=== PATIENT | female | born 1965 | race Caucasian/White ===

== ENCOUNTER 2016-12-03 14:22 | Emergency (ER) | payer SELFPAY ==
--- NOTE | 2016-12-03 15:41 | DIAGNOSTIC IMAGING REPORT ---
PROCEDURE: XR KNEE 4 VIEWS - RIGHT INDICATION: PAIN TECHNIQUE: Four views. COMPARISON: None. FINDINGS: Osteoarthritis with the medial compartment narrowing. there is also some sclerosis in the tibial plateau. IMPRESSION: 1. Osteoarthritis right knee
--- NOTE | 2016-12-03 15:47 | ED CLINICAL REPORT ---
Clinical Report - Physicians/Mid Levels [facility] [address] [place] [address] 12/03/2016 14:26 Patient: FABIAN ARNOLD Time Seen: 14:33; initial patient contact, initial documentation, patient care assumed. Arrived- By private vehicle. Historian- patient. HISTORY OF PRESENT ILLNESS Chief Complaint: LOWER EXTREMITY PAIN. This started about 2 weeks ago and is still present. Not relieved by anything- worsened by standing and walking. Severity is described as being mild. The quality is noted to be burning and "pain". It is described as radiating (R lower leg). Symptoms located in the area of the right knee. The patient has not had redness. No swelling, bladder dysfunction, bowel dysfunction, sensory loss or motor loss. She has had difficulty walking. It has been associated with pain in the right leg. Patient denies an injury. Similar symptoms previously: None. Recent medical care: Not recently seen/assessed. REVIEW OF SYSTEMS No chest pain, difficulty breathing or fever. All systems otherwise negative, except as recorded above. PAST HISTORY See nurses notes. ( Back Pain. Migraine Headache. Anxiety Reaction. --07:51 Abbie Prado R.N.. ADDITIONAL SURGERIES: Cholecystectomy. Hernia Repair. Septal defect heart surgery.). SOCIAL HISTORY Heavy tobacco smoker. No alcohol use or drug use. No recent travel. Is a local resident. FAMILY HISTORY Negative. ADDITIONAL NOTES The nursing notes have been reviewed with agreement regarding the chief complaint, HPI, ROS, PMH and patient medications and allergies. PHYSICAL EXAM Appearance: Alert. Oriented X3. No acute distress. Eyes: Pupils equal, round and reactive to light. Eyes normal inspection. Neck: Normal inspection. Neck supple. CVS: Normal heart rate and rhythm. Heart sounds normal. Respiratory: No respiratory distress. Breath sounds normal. Back: Normal inspection. No tenderness. ROM normal. Skin: Skin intact. Skin warm and dry. Normal skin color. Normal skin turgor. Extremities: Right knee: mild tenderness located in the patella. Limited ROM secondary to pain (diminished flexion and external and internal rotation). Neurovascular intact distally. No ligamentous laxity present. No joint effusion. No erythema, swelling, laceration, abrasion or ecchymosis. No puncture wound, foreign body or deformity. Lower extremities do not exhibit normal ROM. Lower extremity edema present. No calf tenderness. Extremities otherwise negative. Gait: Abnormal gait. Neuro: Oriented X 3. No motor deficit. No sensory deficit. LABS, X-RAYS, AND EKG X-Rays: Right knee negative. Rt Knee X-ray: (IMPRESSION: 1. Osteoarthritis right knee Electronically Final signed by:Vito Wallace MD 12/03/2016 3:41:55 PM). Lower Extremity Sonography: Negative study. verbal report from [facility]. Interpretation time: 15:44. PROGRESS AND PROCEDURES Patient counseled in person regarding the patient's stable condition, test results and diagnosis. 15:45. Differential Diagnosis: I considered fracture, stress fracture, bone spur, primary tumor of bone, metastatic cancer, degenerative joint disease, rheumatoid arthritis, septic etiology, gout, pseudogout, sprain, hyperextension, dislocation, meniscus tear, anterior cruciate ligament tear, ligament tear, soft tissue injury, myositis, fasciitis, tendonitis, bursitis, Joshi's cyst, popliteal aneurysm, embolism, deep venous thrombosis and superficial thrombophlebitis as a possible cause of lower extremity pain in this patient. This is a partial list of diagnoses considered. Above considerations are based on history, physical exam, reassessment, X-Ray data and other information. Differential diagnosis was discussed with patient. Disposition: Discharged home in good and improved condition (15:47). Condition: good and stable. CLINICAL IMPRESSION Acute right knee pain. INSTRUCTIONS Wear elastic wrap (Fernando wrap) as directed for one weeks until better. Warnings: GENERAL WARNINGS: Return or contact your physician immediately if your condition worsens or changes unexpectedly, if not improving as expected, or if other problems arise. Specifically return if problem worsens. Prescription Medications: Ultram 50 mg tablets: take 1-2 orally every 6 hours as needed for pain. Dispense twenty (20). No refills. Substitution is permissible. Understanding of the discharge instructions verbalized by patient. Follow-up with: [facility], , [address], , [place], [address]; Figueroa Martins M.D., Ortho, , [address], , [place], [address]; Constantin Horne M.D., Ortho, , [address], , [place], [address]; Lucien Reynaga MD, Orthopedic Surgeon, , [id number], , [place], [address]; Pierre Erickson MD, Orthopedic Surgeon, , [address] , [place], [address] Follow up in about one week as needed. Call for an appointment. Summary of care provided to patient. (Electronically signed by Rona Weaver A.R.N.P. 12/03/2016 20:37)
--- NOTE | 2016-12-03 15:47 | ED ORDER SUMMARY ---
..... Patient: FABIAN ARNOLD OrderSheet [facility] VisitID: [id number] [address] [place] [address] 51y, F Registration Date/Time: 12/03/2016 ORDER SHEET Weight: 102.0 kg (stated) Allergies: Aleve, PCN GENERAL ORDERS: Knee 4V Right Urgent (14:42 12/03/2016 HBivens A.R.N.P.) (Ack 14:48 PWeiler ER Tech1) (15:06 LNations ER Tech1) US Venous Right Urgent (14:45 12/03/2016 HBivens A.R.N.P.) (Ack 14:48 PWeiler ER Tech1) (15:53 DDean R.N.) Fernando Wrap (15:47 12/03/2016 HBivens A.R.N.P.) (15:58 DDean R.N.) MEDICATION ORDERS: Hydrocodone-APAP PO 5/325 mg (NOW, HIGH ALERT MEDICATION) (15:47 12/03/2016 HBivens A.R.N.P.) (Ack 15:53 DDean R.N.) (16:06 DDean R.N.) IV FLUIDS: ORDER SHEET NOTES: [Electronically signed by Samra Ricks R.N. (16:06 12/03/2016)] [Electronically signed by Rona Weaver A.R.N.P. (20:37 12/03/2016)] [Electronically locked/signed by Samra Ricks R.N. (16:06 12/03/2016)]
--- NOTE | 2016-12-03 15:47 | ED NURSING NOTES ---
Clinical Report - Nurses [facility] [place] [address] 12/03/2016 14:26 Patient: FABIAN ARNOLD TRIAGE Triage time 14:34. Acuity: LEVEL 3. Chief Complaint: INJURY TO RIGHT KNEE. --14:40 Chele Clark R.N. 14:32 12/03/16. BP: 142/103. HR: 80. RR: 20. O2 saturation: 100%. Pain level now 09/01. --14:40 Chele Clark R.N. Acuity: LEVEL 4. --14:42 Chele Clark R.N. Weight: 102 kg stated. Height/Length: 68 inches Per Patient. BMI: 34.2. --14:42 Chele Clark R.N. Medications None. --14:39 Chele Clark R.N. Allergies Aleve. PCN. --14:39 Chele Clark R.N. History Arrived by private vehicle. Historian: patient. ( 2 week history of knee pain without known injury). She has had trouble walking. ( Painful to bear weight). 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 --14:40 Chele Clark R.N. SOCIAL HX: Current every day heavy tobacco smoker- less than 1 pack per day. No alcohol use or drug use. FALL RISK ASSESSMENT: Fall risk assessment completed. No fall risk identified. NUTRITIONAL RISK ASSESSMENT: The nutritional risk assessment revealed no deficiencies. FUNCTIONAL ASSESSMENT: Functional assessment: no impairments noted. LEARNING NEEDS ASSESSMENT: The learning needs assessment revealed no barriers. SKIN INTEGRITY ASSESSMENT: Skin integrity risk assessment completed. No skin integrity risk identified. --14:42 Chele Clark R.N. PROBLEMS: Back Injury. Back Pain. Tetanus Status. Chest Pain. Chronic Headache. Sinus Problems. Acute Pain. LNMP - Last Normal Menstrual Period. Migraine Headache. Dental Pain. Anxiety Reaction. Headache. Immunizations. --14:50 Chele Clark R.N. ADDITIONAL SURGERIES: Cholecystectomy. Hernia Repair. Septal defect heart surgery. --14:51 Chele Clark R.N. Interventions ID band on patient. To room. --14:42 Chele Clark R.N. PHYSICAL ASSESSMENT GENERAL / NEURO / PSYCH: Oriented X 4. Alert. Appears in no acute distress. Appears in pain. EXTREMITIES: Capillary refill is less than 2 seconds in the extremities. Extremity pulses are within normal limits. Pain with weight bearing. Neuro-vascular status intact to the extremity. Right knee. --14:41 Chele Clark R.N. NURSING PROGRESS NOTES Call light placed in reach. Bed placed in lowest position. --14:42 Chele Clark R.N. 15:00. Care transferred and report received. --15:21 Samra Ricks R.N. 15:10 US at bedside doing exam. --15:21 Samra Ricks R.N. 15:50 12/03/2016 Hydrocodone-APAP (Hydrocodone-Acetaminophen) PO 5/325 mg Tablets 1 tab given. --16:06 Samra Ricks R.N. DISPOSITION / DISCHARGE 16:00. Condition at departure: unchanged and stable. Fall risk assessment completed. Risk factors identified include severe pain and patient impairment of mobility. No learning barriers present. Discharge instructions provided and reviewed with the patient. Reviewed medication(s) (ultram, motrin,). Treatments reviewed (ice, venancio, elevate, rest). Reviewed referral to an orthopedic surgeon. Patient verbalized understanding. Written instructions provided in Divehi. The patient was discharged home and accompanied by outgoing inspector. She left the Emergency Department in a wheelchair and via private vehicle. Angular Developer driving. --16:05 Samra Ricks R.N. 15:58 12/03/16. BP: 144/92. HR: 42. RR: 20. O2 saturation: 100%. Temp: deferred. Pain level now: 09/01. --16:05 Samra Ricks R.N. Locked/Released at 12/03/2016 16:06 by Samra Ricks R.N.
--- NOTE | 2016-12-03 15:47 | ED CLINICAL REPORT ---
Clinical Report - Physicians/Mid Levels [facility] [address] [place] [address] 12/03/2016 14:26 Patient: FABIAN ARNOLD Time Seen: 14:33; initial patient contact, initial documentation, patient care assumed. Arrived- By private vehicle. Historian- patient. HISTORY OF PRESENT ILLNESS Chief Complaint: LOWER EXTREMITY PAIN. This started about 2 weeks ago and is still present. Not relieved by anything- worsened by standing and walking. Severity is described as being mild. The quality is noted to be burning and "pain". It is described as radiating (R lower leg). Symptoms located in the area of the right knee. The patient has not had redness. No swelling, bladder dysfunction, bowel dysfunction, sensory loss or motor loss. She has had difficulty walking. It has been associated with pain in the right leg. Patient denies an injury. Similar symptoms previously: None. Recent medical care: Not recently seen/assessed. REVIEW OF SYSTEMS No chest pain, difficulty breathing or fever. All systems otherwise negative, except as recorded above. PAST HISTORY See nurses notes. ( Back Pain. Migraine Headache. Anxiety Reaction. --07:51 Abbie Prado R.N.. ADDITIONAL SURGERIES: Cholecystectomy. Hernia Repair. Septal defect heart surgery.). SOCIAL HISTORY Heavy tobacco smoker. No alcohol use or drug use. No recent travel. Is a local resident. FAMILY HISTORY Negative. ADDITIONAL NOTES The nursing notes have been reviewed with agreement regarding the chief complaint, HPI, ROS, PMH and patient medications and allergies. PHYSICAL EXAM Appearance: Alert. Oriented X3. No acute distress. Eyes: Pupils equal, round and reactive to light. Eyes normal inspection. Neck: Normal inspection. Neck supple. CVS: Normal heart rate and rhythm. Heart sounds normal. Respiratory: No respiratory distress. Breath sounds normal. Back: Normal inspection. No tenderness. ROM normal. Skin: Skin intact. Skin warm and dry. Normal skin color. Normal skin turgor. Extremities: Right knee: mild tenderness located in the patella. Limited ROM secondary to pain (diminished flexion and external and internal rotation). Neurovascular intact distally. No ligamentous laxity present. No joint effusion. No erythema, swelling, laceration, abrasion or ecchymosis. No puncture wound, foreign body or deformity. Lower extremities do not exhibit normal ROM. Lower extremity edema present. No calf tenderness. Extremities otherwise negative. Gait: Abnormal gait. Neuro: Oriented X 3. No motor deficit. No sensory deficit. LABS, X-RAYS, AND EKG X-Rays: Right knee negative. Rt Knee X-ray: (IMPRESSION: 1. Osteoarthritis right knee Electronically Final signed by:Vito Wallcae MD 12/03/2016 3:41:55 PM). Lower Extremity Sonography: Negative study. verbal report from [employer]. Interpretation time: 15:44. PROGRESS AND PROCEDURES Patient counseled in person regarding the patient's stable condition, test results and diagnosis. 15:45. Differential Diagnosis: I considered fracture, stress fracture, bone spur, primary tumor of bone, metastatic cancer, degenerative joint disease, rheumatoid arthritis, septic etiology, gout, pseudogout, sprain, hyperextension, dislocation, meniscus tear, anterior cruciate ligament tear, ligament tear, soft tissue injury, myositis, fasciitis, tendonitis, bursitis, Joshi's cyst, popliteal aneurysm, embolism, deep venous thrombosis and superficial thrombophlebitis as a possible cause of lower extremity pain in this patient. This is a partial list of diagnoses considered. Above considerations are based on history, physical exam, reassessment, X-Ray data and other information. Differential diagnosis was discussed with patient. Disposition: Discharged home in good and improved condition (15:47). Condition: good and stable. CLINICAL IMPRESSION Acute right knee pain. INSTRUCTIONS Wear elastic wrap (Fernando wrap) as directed for one weeks until better. Warnings: GENERAL WARNINGS: Return or contact your physician immediately if your condition worsens or changes unexpectedly, if not improving as expected, or if other problems arise. Specifically return if problem worsens. Prescription Medications: Ultram 50 mg tablets: take 1-2 orally every 6 hours as needed for pain. Dispense twenty (20). No refills. Substitution is permissible. Understanding of the discharge instructions verbalized by patient. Follow-up with: [facility], , [address], , [place], [address]; Figueroa Martins M.D., Ortho, , [address], , [place], [address]; Constantin Horne M.D., Ortho, , [address], , [place], [address]; Lucien Reynaga MD, Orthopedic Surgeon, , [id number], , [place], [address]; Pierre Erickson MD, Orthopedic Surgeon, , [address] , [place], [address] Follow up in about one week as needed. Call for an appointment. Summary of care provided to patient. (Electronically signed by Rona Weaver A.R.N.P. 12/03/2016 20:37)
--- NOTE | 2016-12-03 15:47 | ED NURSING NOTES ---
Clinical Report - Nurses [facility] [place] [address] 12/03/2016 14:26 Patient: FABIAN ARNOLD TRIAGE Triage time 14:34. Acuity: LEVEL 3. Chief Complaint: INJURY TO RIGHT KNEE. --14:40 Chele Clark R.N. 14:32 12/03/16. BP: 142/103. HR: 80. RR: 20. O2 saturation: 100%. Pain level now 09/01. --14:40 Chele Clark R.N. Acuity: LEVEL 4. --14:42 Chele Clark R.N. Weight: 102 kg stated. Height/Length: 68 inches Per Patient. BMI: 34.2. --14:42 Chele Clark R.N. Medications None. --14:39 Chele Clark R.N. Allergies Aleve. PCN. --14:39 Chele Clark R.N. History Arrived by private vehicle. Historian: patient. ( 2 week history of knee pain without known injury). She has had trouble walking. ( Painful to bear weight). 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 --14:40 Chele Clark R.N. SOCIAL HX: Current every day heavy tobacco smoker- less than 1 pack per day. No alcohol use or drug use. FALL RISK ASSESSMENT: Fall risk assessment completed. No fall risk identified. NUTRITIONAL RISK ASSESSMENT: The nutritional risk assessment revealed no deficiencies. FUNCTIONAL ASSESSMENT: Functional assessment: no impairments noted. LEARNING NEEDS ASSESSMENT: The learning needs assessment revealed no barriers. SKIN INTEGRITY ASSESSMENT: Skin integrity risk assessment completed. No skin integrity risk identified. --14:42 Chele Clark R.N. PROBLEMS: Back Injury. Back Pain. Tetanus Status. Chest Pain. Chronic Headache. Sinus Problems. Acute Pain. LNMP - Last Normal Menstrual Period. Migraine Headache. Dental Pain. Anxiety Reaction. Headache. Immunizations. --14:50 Chele Clark R.N. ADDITIONAL SURGERIES: Cholecystectomy. Hernia Repair. Septal defect heart surgery. --14:51 Chele Clark R.N. Interventions ID band on patient. To room. --14:42 Chele Clark R.N. PHYSICAL ASSESSMENT GENERAL / NEURO / PSYCH: Oriented X 4. Alert. Appears in no acute distress. Appears in pain. EXTREMITIES: Capillary refill is less than 2 seconds in the extremities. Extremity pulses are within normal limits. Pain with weight bearing. Neuro-vascular status intact to the extremity. Right knee. --14:41 Chele Clark R.N. NURSING PROGRESS NOTES Call light placed in reach. Bed placed in lowest position. --14:42 Chele Clark R.N. 15:00. Care transferred and report received. --15:21 Samra Ricks R.N. 15:10 US at bedside doing exam. --15:21 Samra Ricks R.N. 15:50 12/03/2016 Hydrocodone-APAP (Hydrocodone-Acetaminophen) PO 5/325 mg Tablets 1 tab given. --16:06 Samra Ricks R.N. DISPOSITION / DISCHARGE 16:00. Condition at departure: unchanged and stable. Fall risk assessment completed. Risk factors identified include severe pain and patient impairment of mobility. No learning barriers present. Discharge instructions provided and reviewed with the patient. Reviewed medication(s) (ultram, motrin,). Treatments reviewed (ice, venancio, elevate, rest). Reviewed referral to an orthopedic surgeon. Patient verbalized understanding. Written instructions provided in Greenlandic. The patient was discharged home and accompanied by electrical systems engineer. She left the Emergency Department in a wheelchair and via private vehicle. Inspectors And Regulatory Officers driving. --16:05 Samra Ricks R.N. 15:58 12/03/16. BP: 144/92. HR: 42. RR: 20. O2 saturation: 100%. Temp: deferred. Pain level now: 09/01. --16:05 Samra Ricks R.N. Locked/Released at 12/03/2016 16:06 by Samra Ricks R.N.
--- NOTE | 2016-12-03 15:47 | ED ORDER SUMMARY ---
..... Patient: FABIAN ARNOLD OrderSheet [facility] VisitID: [id number] [address] [place] [address] 51y, F Registration Date/Time: 12/03/2016 ORDER SHEET Weight: 102.0 kg (stated) Allergies: Aleve, PCN GENERAL ORDERS: Knee 4V Right Urgent (14:42 12/03/2016 HBivens A.R.N.P.) (Ack 14:48 PWeiler ER Tech1) (15:06 LNations ER Tech1) US Venous Right Urgent (14:45 12/03/2016 HBivens A.R.N.P.) (Ack 14:48 PWeiler ER Tech1) (15:53 DDean R.N.) Fernando Wrap (15:47 12/03/2016 HBivens A.R.N.P.) (15:58 DDean R.N.) MEDICATION ORDERS: Hydrocodone-APAP PO 5/325 mg (NOW, HIGH ALERT MEDICATION) (15:47 12/03/2016 HBivens A.R.N.P.) (Ack 15:53 DDean R.N.) (16:06 DDean R.N.) IV FLUIDS: ORDER SHEET NOTES: [Electronically signed by Samra Ricks R.N. (16:06 12/03/2016)] [Electronically signed by Rona Weaver A.R.N.P. (20:37 12/03/2016)] [Electronically locked/signed by Samra Ricks R.N. (16:06 12/03/2016)]
--- NOTE | 2016-12-03 15:54 | DIAGNOSTIC IMAGING REPORT ---
PROCEDURE: US VENOUS - RIGHT EXT INDICATION: PAIN TECHNIQUE: Duplex sonography of the deep venous system in the right lower extremity was performed. Compression and augmentation techniques were used. COMPARISON: None. FINDINGS: Each interrogated segment of deep vein from the common femoral vein into the calf veins demonstrates normal compressibility, augmentation and/or color Doppler flow without filling defect. No evidence of significant soft-tissue edema, soft-tissue mass or cyst. IMPRESSION: 1. No deep venous thrombosis in the right lower extremity.
--- NOTE | 2016-12-03 20:37 | ED DISCHARGE INSTRUCTIONS ---
Patient: FABIAN ARNOLD General Instructions [facility] VisitID: [id number] [address], [place], [place] [id number], F Registration Date/Time: 12/03/2016 Acute right knee pain. INSTRUCTIONS Wear elastic wrap (Fernando wrap) as directed for one weeks until better. Warnings: GENERAL WARNINGS: Return or contact your physician immediately if your condition worsens or changes unexpectedly, if not improving as expected, or if other problems arise. Specifically return if problem worsens. Prescription Medications: Ultram 50 mg tablets: take 1-2 orally every 6 hours as needed for pain. Dispense twenty (20). No refills. Substitution is permissible. Understanding of the discharge instructions verbalized by patient. Follow-up with: [facility], [facility], , [address], , [place] [id number]; Figueroa Martins M.D., Ortho, , [address], , [place] [id number]; Constantin Horne M.D., Ortho, , [address] , [place] [id number]; Lucien Reynaga MD, Orthopedic Surgeon, , [address], , [place], [id number]; Pierre Erickson MD, Orthopedic Surgeon, , [address] , [place] [id number] Follow up in about one week as needed. Call for an appointment. Summary of care provided to patient. ADDITIONAL INFORMATION Myofascial Pain Syndrome: Fibrositis Your pain is caused by a state of chronic muscle tension. This condition is called by various names: myofascial pain, fibrositis and trigger point pain. This can also be due to mechanical stress (such as working at a computer terminal for long periods; or work that requires repetitive motions of the arms or hands) or emotional stress (such as problems on the job or in your personal life). Sometimes there is no obvious cause. The pain can occur in the area of the muscle spasm or at a site distant to it. For example, spasm of a neck muscle can cause headache. Spasm of the muscle near the shoulder blade can cause pain shooting down the arm. Home Care: Try to identify the factors that may be causing your problem and change them: If you feel thatemotional stressis a cause of your pain, learn methods to deal more effectively with the stress in your life. These may include regular exercise, muscle relaxation techniques, meditation or simply taking time out for yourself. Consult your doctor or go to a local bookstore and review the many books and tapes available on the subject of stress reduction. If you feel that physical stress is a cause for your pain, try to modify any poor work habits. You may use acetaminophen (Tylenol) or ibuprofen (Motrin, Advil) to control pain, unless another medicine was prescribed. [NOTE: If you have chronic liver or kidney disease or ever had a stomach ulcer or GI bleeding, talk with your doctor before using these medicines.] The use of heat to the muscle (hot compress or heating pad) will be helpful to reduce muscle spasm. Some persons get relief with ice packs. Apply an ice pack (crushed or cubed ice in a plastic bag, wrapped in a towel) for 20 minutes at a time as needed. Use the method that feels best to you. Massaging the trigger point and stretching out the muscleare an important parts of prevention and treatment. Trigger point massage can be done by first applying heat to the area to warm and prepare the muscle. Have someone apply steady thumb pressure directly on the knot in the muscle (the most tender point) for 30 seconds. Release the pressure, then massage the surrounding muscle. Repeat the process, applying more pressure to the trigger point each time. Do this up to the limit of pain. With each treatment, the trigger point should become less tender and the pain should decrease. You can apply local pressure to trigger points in the back by lying on the floor with a tennis ball under the trigger point. Follow Up with your doctor as advised or if not improving within the next week. It may be necessary for you to receive physical therapy if you do not respond to home treatment alone. Get Prompt Medical Attention if any of the following occur: If your trigger point is in the chest muscles, observe for pain that becomes more severe, lasts longer, or spreads into your shoulder/arm, neck or back; you develop trouble breathing, sweating, nausea or vomiting in association with chest pain If you develop weakness or numbness in an extremity If your pain worsens, regardless of its location Osteoarthritis Osteoarthritis (also called Degenerative Joint Disease) is the most common form of arthritis in adults over 50. It is not the same as Rheumatoid Arthritis. The exact cause is not known but may be related to excess wear and tear on the joint over a long period of time. Prior injury to that joint, or repeated stress on a joint can also cause this type of arthritis. Osteoarthritis most often affects the hands, knees, spine and hips (in that order). The most common symptoms are joint stiffness, pain and swelling. Home Care: When a joint is more sore than usual, rest that joint for a day or two. Heat is very helpful. This can be provided by taking hot baths, applying a heating pad for up to 30 minutes at a time. Because symptoms are usually worse in the morning, many patients like to take a hot bath just after awakening to relax the muscle and soothe the joints. Exercise is the most important part of home treatment for osteoarthritis. This prevents the muscles and ligaments around the joint from becoming weak and helps maintain the full range of joint motion. This limits further damage to the joint. If you are overweight, this puts a lot of extra strain on weight-bearing joints of the lower back, hips, knees, feet and ankles. Losing weight will improve your arthritis symptoms in these joints. Talk to your doctor about a safe and effective weight loss program for yourself. Anti-inflammatory medicine such as ibuprofen (Advil, Motrin) or naproxen (Aleve) is often used to treat this condition. If this alone is not helping, your doctor may prescribe a stronger medicine. If narcotic pain medicines have been prescribed, they should be used in addition to anti-inflammatory drugs and only for severe pain. Follow Up with your doctor as advised by our staff. Get Prompt Medical Attention if any of the following occur: Redness or swelling of a painful joint Fever of 100.4F (38C) or higher, or as directed by your healthcare provider Worsening joint pain Fernando Wrap An "Fernando Bandage" refers to any elastic bandage wrap (2-6" wide). This is used to apply support and compression to an arm or leg. It will help prevent or reduce swelling also. When applying the bandage, it should not be stretched too tightly. A tight Fernando Wrap will reduce circulation and cause tingling or numbness in the hand or foot. It may increase the pain under the bandage. If you get these symptoms, remove the wrap and rest the limb. Symptoms should go away within 1-2 hours. Once symptoms go away, reapply the bandage with less stretch. If symptoms do not go away after 1-2 hours with the bandage off, call your doctor or return to this facility promptly. Tramadol Hydrochloride Oral tablet What is this medicine? TRAMADOL (TRA ma dole) is a pain reliever. It is used to treat moderate to severe pain in adults. How should I use this medicine? Take this medicine by mouth with a full glass of water. Follow the directions on the prescription label. If the medicine upsets your stomach, take it with food or milk. Do not take more medicine than you are told to take. Talk to your literary writer regarding the use of this medicine in children. Special care may be needed. What side effects may I notice from receiving this medicine? Side effects that you should report to your doctor or health manager care management as soon as possible: allergic reactions like skin rash, itching or hives, swelling of the face, lips, or tongue breathing difficulties, wheezing confusion itching light headedness or fainting spells redness, blistering, peeling or loosening of the skin, including inside the mouth seizures Side effects that usually do not require medical attention (report to your doctor or health manager care management if they continue or are bothersome): constipation dizziness drowsiness headache nausea, vomiting What may interact with this medicine? Do not take this medicine with any of the following medications: MAOIs like Carbex, Eldepryl, Marplan, Nardil, and Parnate This medicine may also interact with the following medications: alcohol or medicines that contain alcohol antihistamines benzodiazepines bupropion carbamazepine or oxcarbazepine clozapine cyclobenzaprine digoxin furazolidone linezolid medicines for depression, anxiety, or psychotic disturbances medicines for migraine headache like almotriptan, eletriptan, frovatriptan, naratriptan, rizatriptan, sumatriptan, zolmitriptan medicines for pain like pentazocine, buprenorphine, butorphanol, meperidine, nalbuphine, and propoxyphene medicines for sleep muscle relaxants naltrexone phenobarbital phenothiazines like perphenazine, thioridazine, chlorpromazine, mesoridazine, fluphenazine, prochlorperazine, promazine, and trifluoperazine procarbazine warfarin What if I miss a dose? If you miss a dose, take it as soon as you can. If it is almost time for your next dose, take only that dose. Do not take double or extra doses. Where should I keep my medicine? Keep out of the reach of children. Store at room temperature between 15 and 30 degrees C (59 and 86 degrees F). Keep container tightly closed. Throw away any unused medicine after the expiration date. What should I tell my health care provider before I take this medicine? They need to know if you have any of these conditions: brain tumor depression drug abuse or addiction head injury if you frequently drink alcohol containing drinks kidney disease or trouble passing urine liver disease lung disease, asthma, or breathing problems seizures or epilepsy suicidal thoughts, plans, or attempt; a previous suicide attempt by you or a family member an unusual or allergic reaction to tramadol, codeine, other medicines, foods, dyes, or preservatives or trying to get breast-feeding What should I watch for while using this medicine? Tell your doctor or health manager care management if your pain does not go away, if it gets worse, or if you have new or a different type of pain. You may develop tolerance to the medicine. Tolerance means that you will need a higher dose of the medicine for pain relief. Tolerance is normal and is expected if you take this medicine for a long time. Do not suddenly stop taking your medicine because you may develop a severe reaction. Your body becomes used to the medicine. This does NOT mean you are addicted. Addiction is a behavior related to getting and using a drug for a non-medical reason. If you have pain, you have a medical reason to take pain medicine. Your doctor will tell you how much medicine to take. If your doctor wants you to stop the medicine, the dose will be slowly lowered over time to avoid any side effects. You may get drowsy or dizzy. Do not drive, use machinery, or do anything that needs mental alertness until you know how this medicine affects you. Do not stand or sit up quickly, especially if you are an older patient. This reduces the risk of dizzy or fainting spells. Alcohol can increase or decrease the effects of this medicine. Avoid alcoholic drinks. You may have constipation. Try to have a bowel movement at least every 2 to 3 days. If you do not have a bowel movement for 3 days, call your doctor or health manager care management. Your mouth may get dry. Chewing sugarless gum or sucking hard candy, and drinking plenty of water may help. Contact your doctor if the problem does not go away or is severe. You have been given the following additional information: Myofascial Pain Syndrome Osteoarthritis Fernando Wrap Tramadol Hydrochloride Oral tablet (Electronically signed by Rona Weaver A.R.N.P. 12/03/2016 20:37)
--- NOTE | 2016-12-03 20:37 | ED DISCHARGE INSTRUCTIONS ---
Patient: FABIAN ARNOLD General Instructions [facility] VisitID: [id number] [address], [place], [place] [id number] 51y, F Registration Date/Time: 12/03/2016 Acute right knee pain. INSTRUCTIONS Wear elastic wrap (Fernando wrap) as directed for one weeks until better. Warnings: GENERAL WARNINGS: Return or contact your physician immediately if your condition worsens or changes unexpectedly, if not improving as expected, or if other problems arise. Specifically return if problem worsens. Prescription Medications: Ultram 50 mg tablets: take 1-2 orally every 6 hours as needed for pain. Dispense twenty (20). No refills. Substitution is permissible. Understanding of the discharge instructions verbalized by patient. Follow-up with: [facility], [facility], , [address], , [place] [id number]; Figueroa Martins M.D., Ortho, , [address] , [place] [id number]; Constantin Horne M.D., Ortho, , [address] , [place] [id number]; Lucien Reynaga MD, Orthopedic Surgeon, , [address], , [place], [address]; Pierre Erickson MD, Orthopedic Surgeon, , [address] , [place] [address] Follow up in about one week as needed. Call for an appointment. Summary of care provided to patient. ADDITIONAL INFORMATION Myofascial Pain Syndrome: Fibrositis Your pain is caused by a state of chronic muscle tension. This condition is called by various names: myofascial pain, fibrositis and trigger point pain. This can also be due to mechanical stress (such as working at a computer terminal for long periods; or work that requires repetitive motions of the arms or hands) or emotional stress (such as problems on the job or in your personal life). Sometimes there is no obvious cause. The pain can occur in the area of the muscle spasm or at a site distant to it. For example, spasm of a neck muscle can cause headache. Spasm of the muscle near the shoulder blade can cause pain shooting down the arm. Home Care: Try to identify the factors that may be causing your problem and change them: If you feel thatemotional stressis a cause of your pain, learn methods to deal more effectively with the stress in your life. These may include regular exercise, muscle relaxation techniques, meditation or simply taking time out for yourself. Consult your doctor or go to a local bookstore and review the many books and tapes available on the subject of stress reduction. If you feel that physical stress is a cause for your pain, try to modify any poor work habits. You may use acetaminophen (Tylenol) or ibuprofen (Motrin, Advil) to control pain, unless another medicine was prescribed. [NOTE: If you have chronic liver or kidney disease or ever had a stomach ulcer or GI bleeding, talk with your doctor before using these medicines.] The use of heat to the muscle (hot compress or heating pad) will be helpful to reduce muscle spasm. Some persons get relief with ice packs. Apply an ice pack (crushed or cubed ice in a plastic bag, wrapped in a towel) for 20 minutes at a time as needed. Use the method that feels best to you. Massaging the trigger point and stretching out the muscleare an important parts of prevention and treatment. Trigger point massage can be done by first applying heat to the area to warm and prepare the muscle. Have someone apply steady thumb pressure directly on the knot in the muscle (the most tender point) for 30 seconds. Release the pressure, then massage the surrounding muscle. Repeat the process, applying more pressure to the trigger point each time. Do this up to the limit of pain. With each treatment, the trigger point should become less tender and the pain should decrease. You can apply local pressure to trigger points in the back by lying on the floor with a tennis ball under the trigger point. Follow Up with your doctor as advised or if not improving within the next week. It may be necessary for you to receive physical therapy if you do not respond to home treatment alone. Get Prompt Medical Attention if any of the following occur: If your trigger point is in the chest muscles, observe for pain that becomes more severe, lasts longer, or spreads into your shoulder/arm, neck or back; you develop trouble breathing, sweating, nausea or vomiting in association with chest pain If you develop weakness or numbness in an extremity If your pain worsens, regardless of its location Osteoarthritis Osteoarthritis (also called Degenerative Joint Disease) is the most common form of arthritis in adults over 50. It is not the same as Rheumatoid Arthritis. The exact cause is not known but may be related to excess wear and tear on the joint over a long period of time. Prior injury to that joint, or repeated stress on a joint can also cause this type of arthritis. Osteoarthritis most often affects the hands, knees, spine and hips (in that order). The most common symptoms are joint stiffness, pain and swelling. Home Care: When a joint is more sore than usual, rest that joint for a day or two. Heat is very helpful. This can be provided by taking hot baths, applying a heating pad for up to 30 minutes at a time. Because symptoms are usually worse in the morning, many patients like to take a hot bath just after awakening to relax the muscle and soothe the joints. Exercise is the most important part of home treatment for osteoarthritis. This prevents the muscles and ligaments around the joint from becoming weak and helps maintain the full range of joint motion. This limits further damage to the joint. If you are overweight, this puts a lot of extra strain on weight-bearing joints of the lower back, hips, knees, feet and ankles. Losing weight will improve your arthritis symptoms in these joints. Talk to your doctor about a safe and effective weight loss program for yourself. Anti-inflammatory medicine such as ibuprofen (Advil, Motrin) or naproxen (Aleve) is often used to treat this condition. If this alone is not helping, your doctor may prescribe a stronger medicine. If narcotic pain medicines have been prescribed, they should be used in addition to anti-inflammatory drugs and only for severe pain. Follow Up with your doctor as advised by our staff. Get Prompt Medical Attention if any of the following occur: Redness or swelling of a painful joint Fever of 100.4F (38C) or higher, or as directed by your healthcare provider Worsening joint pain Fernando Wrap An "Fernando Bandage" refers to any elastic bandage wrap (2-6" wide). This is used to apply support and compression to an arm or leg. It will help prevent or reduce swelling also. When applying the bandage, it should not be stretched too tightly. A tight Fernando Wrap will reduce circulation and cause tingling or numbness in the hand or foot. It may increase the pain under the bandage. If you get these symptoms, remove the wrap and rest the limb. Symptoms should go away within 1-2 hours. Once symptoms go away, reapply the bandage with less stretch. If symptoms do not go away after 1-2 hours with the bandage off, call your doctor or return to this facility promptly. Tramadol Hydrochloride Oral tablet What is this medicine? TRAMADOL (TRA ma dole) is a pain reliever. It is used to treat moderate to severe pain in adults. How should I use this medicine? Take this medicine by mouth with a full glass of water. Follow the directions on the prescription label. If the medicine upsets your stomach, take it with food or milk. Do not take more medicine than you are told to take. Talk to your orthodontist assistant regarding the use of this medicine in children. Special care may be needed. What side effects may I notice from receiving this medicine? Side effects that you should report to your doctor or health home care consultant as soon as possible: allergic reactions like skin rash, itching or hives, swelling of the face, lips, or tongue breathing difficulties, wheezing confusion itching light headedness or fainting spells redness, blistering, peeling or loosening of the skin, including inside the mouth seizures Side effects that usually do not require medical attention (report to your doctor or health home care consultant if they continue or are bothersome): constipation dizziness drowsiness headache nausea, vomiting What may interact with this medicine? Do not take this medicine with any of the following medications: MAOIs like Carbex, Eldepryl, Marplan, Nardil, and Parnate This medicine may also interact with the following medications: alcohol or medicines that contain alcohol antihistamines benzodiazepines bupropion carbamazepine or oxcarbazepine clozapine cyclobenzaprine digoxin furazolidone linezolid medicines for depression, anxiety, or psychotic disturbances medicines for migraine headache like almotriptan, eletriptan, frovatriptan, naratriptan, rizatriptan, sumatriptan, zolmitriptan medicines for pain like pentazocine, buprenorphine, butorphanol, meperidine, nalbuphine, and propoxyphene medicines for sleep muscle relaxants naltrexone phenobarbital phenothiazines like perphenazine, thioridazine, chlorpromazine, mesoridazine, fluphenazine, prochlorperazine, promazine, and trifluoperazine procarbazine warfarin What if I miss a dose? If you miss a dose, take it as soon as you can. If it is almost time for your next dose, take only that dose. Do not take double or extra doses. Where should I keep my medicine? Keep out of the reach of children. Store at room temperature between 15 and 30 degrees C (59 and 86 degrees F). Keep container tightly closed. Throw away any unused medicine after the expiration date. What should I tell my health care provider before I take this medicine? They need to know if you have any of these conditions: brain tumor depression drug abuse or addiction head injury if you frequently drink alcohol containing drinks kidney disease or trouble passing urine liver disease lung disease, asthma, or breathing problems seizures or epilepsy suicidal thoughts, plans, or attempt; a previous suicide attempt by you or a family member an unusual or allergic reaction to tramadol, codeine, other medicines, foods, dyes, or preservatives or trying to get breast-feeding What should I watch for while using this medicine? Tell your doctor or health home care consultant if your pain does not go away, if it gets worse, or if you have new or a different type of pain. You may develop tolerance to the medicine. Tolerance means that you will need a higher dose of the medicine for pain relief. Tolerance is normal and is expected if you take this medicine for a long time. Do not suddenly stop taking your medicine because you may develop a severe reaction. Your body becomes used to the medicine. This does NOT mean you are addicted. Addiction is a behavior related to getting and using a drug for a non-medical reason. If you have pain, you have a medical reason to take pain medicine. Your doctor will tell you how much medicine to take. If your doctor wants you to stop the medicine, the dose will be slowly lowered over time to avoid any side effects. You may get drowsy or dizzy. Do not drive, use machinery, or do anything that needs mental alertness until you know how this medicine affects you. Do not stand or sit up quickly, especially if you are an older patient. This reduces the risk of dizzy or fainting spells. Alcohol can increase or decrease the effects of this medicine. Avoid alcoholic drinks. You may have constipation. Try to have a bowel movement at least every 2 to 3 days. If you do not have a bowel movement for 3 days, call your doctor or health home care consultant. Your mouth may get dry. Chewing sugarless gum or sucking hard candy, and drinking plenty of water may help. Contact your doctor if the problem does not go away or is severe. You have been given the following additional information: Myofascial Pain Syndrome Osteoarthritis Fernando Wrap Tramadol Hydrochloride Oral tablet (Electronically signed by Rona Weaver A.R.N.P. 12/03/2016 20:37)
--- NOTE | 2016-12-03 20:38 | ED MED RECONCILIATION SUMMARY ---
Patient: FABIAN ARNOLD Medication Reconciliation Report [facility] VisitID: [id number] [address] [place] [address] 51y, F Registration Date/Time: 12/03/2016 Weight: 102.0 kg Height/Length: 68 in. BMI: 34.2 ALLERGIES: Aleve, PCN The patient's Home Medications are listed below: NONE. The source(s) of the original Home Medication information: Not obtained. The following Medications were given to the patient in the Emergency Department: Hydrocodone-APAP [PO] PO 1 tab, administered: 12/03/2016 3:50:00 PM The following Medications were prescribed to the patient: Ultram 50 mg tablets: take 1-2 orally every 6 hours as needed for pain. Dispense twenty (20). No refills. Substitution is permissible. -- Rona Weaver A.R.N.P.
--- NOTE | 2016-12-03 20:38 | ED MED RECONCILIATION SUMMARY ---
Patient: FABIAN ARNOLD Medication Reconciliation Report [facility] VisitID: [id number] [address] [place] [address] 51y, F Registration Date/Time: 12/03/2016 Weight: 102.0 kg Height/Length: 68 in. BMI: 34.2 ALLERGIES: Aleve, PCN The patient's Home Medications are listed below: NONE. The source(s) of the original Home Medication information: Not obtained. The following Medications were given to the patient in the Emergency Department: Hydrocodone-APAP [PO] PO 1 tab, administered: 12/03/2016 3:50:00 PM The following Medications were prescribed to the patient: Ultram 50 mg tablets: take 1-2 orally every 6 hours as needed for pain. Dispense twenty (20). No refills. Substitution is permissible. -- Rona Weaver A.R.N.P.
--- NOTE | 2016-12-03 20:38 | ED MAR SUMMARY ---
..... Medication Administration Record [facility] [address] [place] [address] Patient: FABIAN ARNOLD Visit ID: [id number] 51y, F Weight: 102.0 kg Height/Length: 68 in BMI: 34.2 ALLERGIES: Aleve, PCN Given 15:50 12/03/2016 Rambo, Cirilo Cabrales Medication Administered: HYDROCODONE-APAP [PO] (HYDROCODONE-ACETAMINOPHEN), Dose: 1 tab 5/325 mg Tablets PO. Medication Ordered: Hydrocodone-APAP PO 5/325 mg (NOW, HIGH ALERT MEDICATION).
--- NOTE | 2016-12-03 20:38 | ED MAR SUMMARY ---
..... Medication Administration Record [facility] [address] [place] [address] Patient: FABIAN ARNOLD Visit ID: [id number] 51y, F Weight: 102.0 kg Height/Length: 68 in BMI: 34.2 ALLERGIES: Aleve, PCN Given 15:50 12/03/2016 Rambo, Cirilo Cabrales Medication Administered: HYDROCODONE-APAP [PO] (HYDROCODONE-ACETAMINOPHEN), Dose: 1 tab 5/325 mg Tablets PO. Medication Ordered: Hydrocodone-APAP PO 5/325 mg (NOW, HIGH ALERT MEDICATION).
== END 2016-12-03 16:00 | disposition home or self-care (01) ==
LOC: ED SRH 14:22
DX: M25.561 Pain in right knee (principal); F17.210 Nicotine dependence, cigarettes, uncomplicated; Z88.8 Allergy status to other drugs, medicaments and biological substances; Z88.0 Allergy status to penicillin